=== PATIENT | female | born 1995 | race Asian ===

== ENCOUNTER 2016-08-27 20:39 | Emergency (ER) | payer BC ==
[~2016-08-27] VITALS: Ht 152.4 cm; Wt 56.5 kg
[~2016-08-27 20:39] MED LIST: IBUP400T PO
[2016-08-27] MEDS ORDERED: PREN1TAB62 PO (22:16)
[2016-08-27 22:33] VITALS: BP 107/63
== END 2016-08-27 23:03 | disposition home or self-care (01) ==
LOC: ED 22:55
DX: O26.892 Other specified pregnancy related conditions, second trimester (principal); Z3A.14 14 weeks gestation of pregnancy
CPT/HCPCS: 76805; 81001; 87086; 99285

== ENCOUNTER 2017-02-10 20:00 | Outpatient (CLI) | payer BC, MEDICAID ==
[~2017-02-10] VITALS: Ht 149.9 cm; Wt 70.0 kg
[~2017-02-10 20:00] MED LIST changes: +IBUP-1221 PO; -IBUP400T PO; +PREN1TAB62 PO
== END 2017-02-10 22:14 | disposition home or self-care (01) ==
LOC: LDOP 20:00
PROVIDERS: ATTEND Obstetrics & Gynecology
DX: O26.893 Other specified pregnancy related conditions, third trimester (principal); R10.9 Unspecified abdominal pain; Z3A.36 36 weeks gestation of pregnancy
CPT/HCPCS: 59025; 99211; G0463

== ENCOUNTER 2017-02-17 08:34 | Inpatient (IN) | payer BC, MEDICAID ==
[~2017-02-17] VITALS: Ht 149.9 cm; Wt 70.0 kg
[2017-02-17 09:05] VITALS: BP 114/60
[2017-02-17] MEDS ORDERED: MISOPROSTOL 200 MCG TABLET ONE (10:29)
[2017-02-17] MEDS ORDERED: OXYTOCIN 30U/ 0.9% NaCL 500ML 500 ML ONE (10:29)
[2017-02-17] MEDS ORDERED: NEWBORN KIT ONE (10:29)
[2017-02-17] MEDS ORDERED: LACTATED RINGERS 1,000 ML IV SCH (10:55)
[2017-02-17] MEDS ORDERED: OXYTOCIN 30U/ 0.9% NaCL 500ML 500 ML IV ONE (10:55)
[2017-02-17] MEDS ORDERED: ONDANSETRON 2MG/ML, 2ML IVPush PRN (11:00)
[2017-02-17] MEDS ORDERED: FENTANYL PF 100 MCG/2ML IV PRN (11:00)
[2017-02-17] MEDS ORDERED: FENTANYL PF 100 MCG/2ML IVPush PRN (11:00)
[2017-02-17] MEDS ORDERED: TERBUTALINE 1 MG/ML, 1ML IVPush PRN (11:00)
[2017-02-17] MEDS ORDERED: SODIUM CHLORIDE FLUSH 10ML SYR IVF PRN (11:00)
[2017-02-17 11:27] LABS: HEMATOCRIT 43.9 % (34.6-47.8); WHITE BLOOD COUNT 14.7 x10^3/uL (3.4-10)
[2017-02-17] MEDS ORDERED: OXYTOCIN 10 UNITS/ML, 1ML ONE (12:17)
[2017-02-17] MEDS ORDERED: OXYTOCIN 30U/ 0.9% NaCL 500ML 500 ML IV SCH (12:43)
[2017-02-17] MEDS ORDERED: DOCUSATE 100 MG CAPSULE PO PRN (13:00)
[2017-02-17] MEDS ORDERED: OXYcodone/APAP 5/325MG TABLET PO PRN (13:00)
[2017-02-17] MEDS ORDERED: MISOPROSTOL 200 MCG TABLET PR PRN (13:00)
[2017-02-17] MEDS ORDERED: HYDROcodone/APAP 5/325 TABLET PO PRN (13:00)
[2017-02-17] MEDS ORDERED: ONDANSETRON 2MG/ML, 2ML IV PRN (13:00)
[2017-02-17] MEDS ORDERED: OXYTOCIN 10 UNITS/ML, 1ML IM ONE (14:00)
[2017-02-17] MEDS ORDERED: IBUPROFEN 600 MG TABLET ONE (14:05)
[2017-02-17] MEDS: IBUPROFEN 600 MG TABLET PO PRN (14:15)
[2017-02-17 15:33] VITALS: BP 120/75
[2017-02-17 21:27] LABS: HEMOGLOBIN 13.5 g/dL (11.7-16.4); WHITE BLOOD COUNT 16.6 x10^3/uL (3.4-10)
[2017-02-18] MEDS: IBUPROFEN 600 MG TABLET PO PRN ×2 (01:14→08:52)
[2017-02-18 04:30] VITALS: BP 104/55
[2017-02-18 08:10] VITALS: BP 113/77
[2017-02-18] MEDS ORDERED: PRENATAL VIT/IRON/FA 1 EACH TABLET PO SCH (09:00)
[2017-02-18] MEDS ORDERED: IBUP-1222 PO (11:30)
== END 2017-02-18 17:34 | disposition home or self-care (01) | DRG 775 ==
LOC: LDOP 08:34 → LDIP 10:33 → 2NW 14:39
PROVIDERS: ADMIT Obstetrics & Gynecology; ATTEND Obstetrics & Gynecology
PROC: 10E0XZZ Delivery of Products of Conception, External Approach (ICD-10-PCS; principal; 2017-02-17)
PROC: 0KQM0ZZ Repair Perineum Muscle, Open Approach (ICD-10-PCS; 2017-02-17)
PROC: 0UQMXZZ Repair Vulva, External Approach (ICD-10-PCS; 2017-02-17)
DX: O70.1 Second degree perineal laceration during delivery (principal); Z37.0 Single live birth; Z3A.38 38 weeks gestation of pregnancy
CPT/HCPCS: 36415; 85025; 86850; 86900; J2590

== ENCOUNTER 2017-04-11 13:46 | Emergency (ER) | payer BC, MEDICAID, OTHER ==
[~2017-04-11] VITALS: Ht 152.4 cm; Wt 130.0 kg
[~2017-04-11 13:46] MED LIST changes: +IBUP-1222 PO
[2017-04-11 14:13] VITALS: BP 107/59
== END 2017-04-11 15:46 | disposition home or self-care (01) ==
LOC: ED 15:40
DX: S00.83XA Contusion of other part of head, initial encounter (principal); S90.31XA Contusion of right foot, initial encounter; S60.222A Contusion of left hand, initial encounter; V43.52XA Car driver injured in collision with other type car in traffic accident, initial encounter; Y93.89 Activity, other specified; Y92.410 Unspecified street and highway as the place of occurrence of the external cause; Y99.8 Other external cause status
CPT/HCPCS: 99284

== ENCOUNTER 2018-02-20 18:13 | Emergency (ER) | payer MEDICAID, OTHER ==
[~2018-02-20] VITALS: Ht 152.4 cm; Wt 70.0 kg
[2018-02-20 18:40] VITALS: BP 118/56
== END 2018-02-20 19:12 | disposition home or self-care (01) ==
LOC: ED 19:00
DX: T65.91XA Toxic effect of unspecified substance, accidental (unintentional), initial encounter (principal); T78.40XA Allergy, unspecified, initial encounter; L03.116 Cellulitis of left lower limb; W57.XXXA Bitten or stung by nonvenomous insect and other nonvenomous arthropods, initial encounter; Y93.89 Activity, other specified; Y92.89 Other specified places as the place of occurrence of the external cause; Y99.8 Other external cause status
CPT/HCPCS: 99283

== ENCOUNTER 2018-04-13 18:22 | Emergency (ER) | payer MEDICAID ==
[~2018-04-13] VITALS: Ht 152.4 cm; Wt 72.6 kg
[2018-04-13 18:51] VITALS: BP 121/81
[2018-04-13] MEDS ORDERED: DIPHENHYDRAMINE 50 MG CAPSULE ONE (19:07)
[2018-04-13] MEDS ORDERED: FAMOTIDINE 20 MG TABLET ONE (19:08)
[2018-04-13] MEDS ORDERED: FAMOTIDINE 20 MG TABLET PO ONE (19:30)
[2018-04-13] MEDS ORDERED: DIPHENHYDRAMINE 25 MG CAPSULE PO ONE (19:30)
== END 2018-04-13 20:50 | disposition home or self-care (01) ==
LOC: ED 20:45
DX: L50.9 Urticaria, unspecified (principal)
CPT/HCPCS: 99284; J7512; Q0163

== ENCOUNTER 2018-05-08 12:01 | Emergency (ER) | payer MEDICAID ==
[~2018-05-08] VITALS: Ht 152.4 cm; Wt 71.2 kg
[2018-05-08 12:58] LABS: BASOPHILS # (AUTO) 0.05 x10^3/uL (0-0.1); BASOPHILS % (AUTO) 1 % (0-1); EOSINOPHILS # (AUTO) 0.05 x10^3/uL (0-0.4); EOSINOPHILS % (AUTO) 1 % (1-7); LYMPHOCYTES # (AUTO) 1.81 x10^3/uL (1-3.4); LYMPHOCYTES % (AUTO) 25 % (22-44); MD NO; MEAN CORPUSCULAR HEMOGLOBIN 31.6 pg (27.0-34.8); MEAN CORPUSCULAR HGB CONC 34.8 g/dL (32.4-35.8); MEAN CORPUSCULAR VOLUME 90.9 fL (80-100); MEAN PLATELET VOLUME 8.8 fL (7.4-10.4); MONOCYTES # (AUTO) 0.43 x10^3/uL (0.2-0.8); MONOCYTES % (AUTO) 6 % (2-9); NEUTROPHILS # (AUTO) 4.86 x10^3/uL (1.8-6.8); NEUTROPHILS % (AUTO) 67 % (42-75); PLATELET COUNT 370 x10^3/uL (130-400); RED CELL DISTRIBUTION WIDTH 13.2 % (9.6-15.2)
[2018-05-08 13:32] LABS: HCG UR SG 1.004 (1.003-1.030); MICROSCOPIC AUTO
[2018-05-08 13:40] LABS: CULTURE INDICATED? YES
[2018-05-08 14:09] VITALS: BP 106/48
== END 2018-05-08 14:12 | disposition home or self-care (01) ==
LOC: ED 12:42
DX: N93.8 Other specified abnormal uterine and vaginal bleeding (principal); N39.0 Urinary tract infection, site not specified
CPT/HCPCS: 36415; 76830; 81001; 81025; 85025; 87086; 99284

== ENCOUNTER 2019-06-18 15:59 | Emergency (ER) | payer SELFPAY ==
[~2019-06-18] VITALS: Ht 152.4 cm; Wt 69.4 kg
[2019-06-18 16:15] VITALS: BP 114/71
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
--- NOTE | 2019-06-18 18:20 | NUR ---
STAGE RIGGER HERE SPEAKING WITH PT.
--- NOTE | 2019-06-18 18:37 | NUR ---
[facility] CALLED BY [employer] BUSINESS DEVELOPMENT OFFICER. WILL COME SEE PT.
== END 2019-06-18 20:07 | disposition home or self-care (01) ==
LOC: ED 19:40
DX: S40.021A Contusion of right upper arm, initial encounter (principal); S70.11XA Contusion of right thigh, initial encounter; S70.02XA Contusion of left hip, initial encounter; S70.12XA Contusion of left thigh, initial encounter; R13.10 Dysphagia, unspecified; G89.11 Acute pain due to trauma; M54.2 Cervicalgia; Y04.0XXA Assault by unarmed brawl or fight, initial encounter; Y93.89 Activity, other specified; Y92.098 Other place in other non-institutional residence as the place of occurrence of the external cause; Y99.8 Other external cause status
CPT/HCPCS: 70360; 99283